=== PATIENT | female | born 1960 | race African-American/Black ===

== ENCOUNTER 2021-12-02 04:26 | Day surgery (SDC) | payer OTHER ==
[2021-11-26 14:57] VITALS: BMI 23.5
[2021-12-02] MEDS ORDERED: ONDANSETRON 4 MG/2 ML VIAL IVPUSH PRN (11:06)
[2021-12-02] MEDS ORDERED: oxyCODONE HCL 5 MG TABLET PO PRN ×2 (11:06)
[2021-12-02] MEDS ORDERED: LACTATED RINGERS SOLUTION 1,000 ML IV SCH (11:15)
[2021-12-02] MEDS ORDERED: MIDAZOLAM HCL 2 MG/2 ML SINGLE DOSE VIAL ONE ×2 (11:17)
[2021-12-02] MEDS ORDERED: ROPIVACAINE HCL 0.5% 30ML VIAL ONE (11:21)
[2021-12-02] MEDS ORDERED: PROPOFOL 20 ML ONE (11:57)
[2021-12-02] MEDS ORDERED: ceFAZolin SODIUM 1 GM VIAL IVPB ONE ×2 (12:30→12:40)
[2021-12-02] MEDS ORDERED: ceFAZolin SODIUM 1 GM VIAL ONE ×2 (12:34→12:49)
[2021-12-02] MEDS ORDERED: DEXAMETHASONE SOD PHOSPHATE 4 MG/1 ML VIAL ONE (12:49)
[2021-12-02] MEDS ORDERED: ONDANSETRON 4 MG/2 ML VIAL ONE (12:49)
[2021-12-02 17:01] VITALS: BP 140/80; PULSE 78; TEMP 97.7
== END 2021-12-02 16:30 | disposition home or self-care (01) ==
LOC: JASU-SURG 04:26
PROVIDERS: ATTEND Orthopaedic Surgery
PROC: 0LQ14ZZ Repair Right Shoulder Tendon, Percutaneous Endoscopic Approach (ICD-10-PCS; principal; 2021-12-02 13:00)
PROC: 0RNJ4ZZ Release Right Shoulder Joint, Percutaneous Endoscopic Approach (ICD-10-PCS; 2021-12-02 13:00)
DX: M75.121 Complete rotator cuff tear or rupture of right shoulder, not specified as traumatic (principal)
CPT/HCPCS: 94760